=== PATIENT | male | born 1965 | race Caucasian/White ===

== ENCOUNTER → 2017-06-12 | Outpatient (CLI) | payer OTHER | END | disposition home or self-care (01) | LOC: CDC 09:27 | DX: Z01.810 Encounter for preprocedural cardiovascular examination (principal); G56.21 Lesion of ulnar nerve, right upper limb; M25.521 Pain in right elbow; M77.01 Medial epicondylitis, right elbow; R00.1 Bradycardia, unspecified | CPT/HCPCS: 93000 ==